=== PATIENT | female | born 1980 | race Hispanic/Latino ===

== ENCOUNTER 2020-12-13 07:46 | Outpatient (CLI) | payer BC, MEDICAID | END 2020-12-13 07:47 | disposition home or self-care (01) | LOC: BICULT 07:46 | PROVIDERS: ATTEND Nurse Practitioner Family | DX: R10.2 Pelvic and perineal pain (principal); D25.9 Leiomyoma of uterus, unspecified; R93.89 Abnormal findings on diagnostic imaging of other specified body structures | CPT/HCPCS: 76856; 93976 ==

== ENCOUNTER 2021-01-17 19:00 | Emergency (ER) | payer BC, MEDICAID ==
[2021-01-17] MEDS ORDERED: Morphine 4 MG/ML VIAL ONE (20:10)
[2021-01-17] MEDS ORDERED: Ondansetron PF 4 MG/2 ML Vial ONE (20:10)
[2021-01-17] MEDS ORDERED: Fentanyl 100 MCG/2 ML VIAL ONE (21:00)
[2021-01-17] MEDS ORDERED: HYDROcodone/Acetaminophen 5/325 mg Tablet ONE (22:12)
== END 2021-01-17 23:05 | disposition home or self-care (01) ==
LOC: ERS 19:00
DX: D25.9 Leiomyoma of uterus, unspecified (principal)
CPT/HCPCS: 94760; 96374; 96375; J2270; J2405; J3010

== ENCOUNTER 2023-03-26 09:23 | Outpatient (CLI) | payer BC | END 2023-03-26 09:24 | disposition home or self-care (01) | LOC: SCSRAD 09:23 | PROVIDERS: ATTEND Nurse Practitioner Family | DX: R10.32 Left lower quadrant pain (principal) | CPT/HCPCS: 74019 ==